=== PATIENT | male | born 1990 | race Caucasian/White ===

== ENCOUNTER 2017-01-11 13:56 | Emergency (ER) | payer MEDICAID, OTHER ==
--- NOTE | 2017-01-11 14:34 | EDM.PDOC ---
ED HPI GI/ABDOMINAL - General Chief Complaint: Gastrointestinal Problem Stated Complaint: VOMITTING Time Seen by Provider: 01/11/17 14:29 Source of Information: Reports: Patient History Limitations: Reports: No limitations - History of Present Illness INITIAL COMMENTS - FREE TEXT/NARRATIVE: HISTORY AND PHYSICAL: History of present illness: [26-year-old male [place] the prior history of marijuana enjoyment and cyclic vomiting syndrome now complaining of nausea and vomiting. Patient states he stopped smoking marijuana 2 weeks ago but he still having the same area nausea and vomiting symptoms. The case has abdominal cramping but has no pain at this time. His concern about his nausea and feels she might be getting dehydrated. No chest pain or shortness of breath. Denies abdominal pain currently. Review of systems: As per history of present illness and below otherwise all systems reviewed and negative. Past medical history: As per history of present illness and as reviewed below otherwise noncontributory. Surgical history: As per history of present illness and as reviewed below otherwise noncontributory. Social history: No reported history of drug or alcohol abuse. Family history: As per history of present illness and as reviewed below otherwise noncontributory. Physical exam: HEENT: Atraumatic, normocephalic, pupils reactive, negative for conjunctival pallor or scleral icterus, mucous membranes moist, throat clear, neck supple, nontender, trachea midline. Lungs: Clear to auscultation, breath sounds equal bilaterally, chest nontender. Heart: S1S2, regular, negative for clicks, rubs, or JVD. Abdomen: Soft, nondistended, nontender. Negative for masses or hepatosplenomegaly. Negative for costovertebral tenderness. Pelvis: Stable nontender. Genitourinary: Deferred. Rectal: Deferred. Extremities: Atraumatic, negative for cords or calf pain. Neurovascular unremarkable. Neuro: Awake, alert, oriented. Cranial nerves II through XII unremarkable. Cerebellum unremarkable. Motor and sensory unremarkable throughout. Exam nonfocal. Diagnostics: [] Therapeutics: [] Impression: [] Plan: [] Definitive disposition and diagnosis as appropriate pending reevaluation and review of above. - Related Data Allergies/ADRs: Allergies Allergy/AdvReac Type Severity Reaction Status Date / Time No Known Allergies Allergy Verified 01/11/17 14:27 Home Meds: Home Meds Ondansetron [Zofran ODT] 4 mg SL Q4H PRN #30 tab.dis 01/11/17 [Rx] Past Medical History - Past Health History Medical/Surgical History: Denies Medical/Surgical History HEENT History: Reports: Hard of hearing, Otitis media Cardiovascular History: Reports: None Respiratory History: Reports: None Gastrointestinal History: Reports: GERD, PUD Other Gastrointestinal History: "marijuanna induced cyclical vomitting" Genitourinary History: Reports: None Musculoskeletal History: Reports: Fracture Other Musculoskeletal History: hx of fx right arm Neurological History: Reports: None Psychiatric History: Reports: None Endocrine/Metabolic History: Reports: Obesity/BMI 30+ Hematologic History: Reports: None Immunologic History: Reports: None Oncologic (Cancer) History: Reports: None Dermatologic History: Reports: None - Infectious Disease History Infectious Disease History: Reports: Chicken pox - Past Surgical History Head Surgeries/Procedures: Reports: None HEENT Surgical History: Reports: Other (see below) Other HEENT Surgeries/Procedures: ear surgery Cardiovascular Surgical History: Reports: None Respiratory Surgical History: Reports: None GI Surgical History: Reports: None Male Surgical History: Reports: None Endocrine Surgical History: Reports: None Neurological Surgical History: Reports: None Musculoskeletal Surgical History: Reports: None Oncologic Surgical History: Reports: None Social & Family History - Family History Family Medical History: Noncontributory - Tobacco Use Smoking Status *Q: Never Smoker Years of Tobacco use: 4 Packs/Tins Daily: 1 Second Hand Smoke Exposure: No - Caffeine Use Caffeine Use: Reports: Coffee - Recreational Drug Use Recreational Drug Use: Yes Drug Use in Last 12 Months: Yes Recreational Drug Type: Reports: Marijuana/Hashish Recreational Drug Use Frequency: Socially ED ROS GENERAL - Review of Systems Review Of Systems: See Below ED EXAM, GI/ABD - Physical Exam Exam: See Below (See history of present illness) Course - Vital Signs Text/Narrative:: 22-year-old male signs and symptoms consistent with marijuana cyclic vomiting syndrome manifestations versus idiopathic cyclic vomiting. Patient is well- appearing with unremarkable vital signs. His abdomen is benign. Mucous membranes not visibly dry however patient is not tachycardic. Patient hydrated antiemetic given. No further workup or treatment indicated patient stable for discharge. Zofran arrived. Patient agrees with outpatient followup. Strict return precautions given. Last Recorded V/S: Last Vital Signs Temp 36.9 C 01/11/17 16:30 Pulse 99 01/11/17 16:30 Resp 18 01/11/17 16:30 BP 135/88 01/11/17 16:30 Pulse Ox 97 01/11/17 16:30 - Orders/Labs/Meds Meds: Medications Discontinued Medications Generic Name Dose Route Start Last Admin Trade Name Freq PRN Reason Stop Dose Admin Sodium Chloride 1,000 mls @ 999 mls/hr 01/11/17 14:37 01/11/17 14:59 Normal Saline IV 01/11/17 15:37 999 mls/hr STAT ONE Administration Ondansetron HCl 4 mg 01/11/17 14:37 01/11/17 14:59 Zofran Odt PO 01/11/17 14:38 4 mg ONETIME ONE Administration Departure - Departure Time of Disposition: 15:54 Disposition: Home, Self-Care 01 Condition: good Clinical Impression: Cyclic vomiting syndrome Qualifiers: Vomiting Intractability: intractable Nausea presence: without nausea Qualified Code(s): G43.A1 - Cyclical vomiting, intractable Nausea and vomiting Qualifiers: Vomiting type: unspecified Vomiting Intractability: unspecified Qualified Code( s): R11.2 - Nausea with vomiting, unspecified Prescriptions: Ondansetron [Zofran ODT] 4 mg SL Q4H PRN #30 tab.dis PRN Reason: Nausea Instructions: Nausea and Vomiting, Adult, [id number] Referrals: Rodri Garcia MD [Primary Care Provider] - Forms: ED Department Discharge Additional Instructions: Your illness is consistent with your past history of marijuana cyclic vomiting syndrome. It is good he stopped smoking marijuana 2 weeks ago however it may take some time for your vomiting syndrome to improve completely. It is also possible that there was a contributory component of marijuana smoking and you can also have another reason for her nausea and vomiting such as gastroparesis, which means decreased motility of the stomach initiated with recurrent vomiting. Use Zofran as needed for nausea and drink plenty of fluids. Follow up with your DrJhon in one to 2 days for reevaluation and further workup as needed. Return immediately for intractable or uncontrolled vomiting, severe pain, or fevers associated with abdominal pain.
[2017-01-11] MEDS: Sodium Chloride 0.9% 1,000 ML IV ONE (14:59)
[2017-01-11] MEDS: Ondansetron 4 MG Tab.DIS PO ONE (14:59)
[2017-01-11 18:27] VITALS: BP 135/88
== END 2017-01-11 16:30 | disposition home or self-care (01) ==
LOC: MW.ED 13:56
DX: G43.A1 Cyclical vomiting, in migraine, intractable (principal); K21.9 Gastro-esophageal reflux disease without esophagitis; E66.9 Obesity, unspecified; Z68.30 Body mass index [BMI] 30.0-30.9, adult; Z98.890 Other specified postprocedural states
CPT/HCPCS: 96360; 99283; A9270; J7040

== ENCOUNTER 2017-01-12 10:32 | Emergency (ER) | payer MEDICAID, OTHER ==
[2017-01-12 10:46] VITALS: BP 163/90
--- NOTE | 2017-01-12 11:01 | EDM.PDOC ---
ED HPI GI/ABDOMINAL - General Chief Complaint: Gastrointestinal Problem Stated Complaint: VOMITTING Time Seen by Provider: 01/12/17 10:39 Source of Information: Reports: Patient History Limitations: Reports: No limitations - History of Present Illness INITIAL COMMENTS - FREE TEXT/NARRATIVE: HISTORY AND PHYSICAL: History of present illness: [26-year-old male with a long history of cyclic vomiting syndrome] with suspected injury [place] marijuana component fully worked up by GI years ago which was unremarkable. Patient seen 9 times in our emergency department for the same or similar complaint of last year. Patient was seen by me yesterday with the same complaint concerned that he is dehydrated he received a liter of IV fluids. He returns today is not actively vomiting is concerned about his nausea. He has a Zofran prescription from yesterday which he filled. Denies abdominal pain. No fevers chills sweats or shaking chills. No discomfort with movement. Normal bowel and bladder habits. Review of systems: As per history of present illness and below otherwise all systems reviewed and negative. Past medical history: As per history of present illness and as reviewed below otherwise noncontributory. Surgical history: As per history of present illness and as reviewed below otherwise noncontributory. Social history: No reported history of drug or alcohol abuse. Family history: As per history of present illness and as reviewed below otherwise noncontributory. Physical exam: HEENT: Atraumatic, normocephalic, pupils reactive, negative for conjunctival pallor or scleral icterus, mucous membranes moist, throat clear, neck supple, nontender, trachea midline. His membranes moist and intact Lungs: Clear to auscultation, breath sounds equal bilaterally, chest nontender. Heart: S1S2, regular, negative for clicks, rubs, or JVD. Abdomen: Soft, nondistended, nontender. Negative for masses or hepatosplenomegaly. Negative for costovertebral tenderness. Pelvis: Stable nontender. Genitourinary: Deferred. Rectal: Deferred. Extremities: Atraumatic, negative for cords or calf pain. Neurovascular unremarkable. Neuro: Awake, alert, oriented. . Cerebellum unremarkable. Motor and sensory unremarkable throughout. Exam nonfocal. Diagnostics: [] Therapeutics: [] Impression: [] Plan: [] Definitive disposition and diagnosis as appropriate pending reevaluation and review of above. - Related Data Allergies/ADRs: Allergies Allergy/AdvReac Type Severity Reaction Status Date / Time No Known Allergies Allergy Verified 01/12/17 10:43 Home Meds: Home Meds Ondansetron [Zofran ODT] 4 mg SL Q4H PRN #30 tab.dis 01/11/17 [Rx] Past Medical History - Past Health History Medical/Surgical History: Denies Medical/Surgical History HEENT History: Reports: Hard of hearing, Otitis media Cardiovascular History: Reports: None Respiratory History: Reports: None Gastrointestinal History: Reports: GERD, PUD Other Gastrointestinal History: "marijuanna induced cyclical vomitting" Genitourinary History: Reports: None Musculoskeletal History: Reports: Fracture Other Musculoskeletal History: hx of fx right arm Neurological History: Reports: None Psychiatric History: Reports: None Endocrine/Metabolic History: Reports: Obesity/BMI 30+ Hematologic History: Reports: None Immunologic History: Reports: None Oncologic (Cancer) History: Reports: None Dermatologic History: Reports: None - Infectious Disease History Infectious Disease History: Reports: Chicken pox - Past Surgical History Head Surgeries/Procedures: Reports: None HEENT Surgical History: Reports: Other (see below) Other HEENT Surgeries/Procedures: ear surgery Cardiovascular Surgical History: Reports: None Respiratory Surgical History: Reports: None GI Surgical History: Reports: None Male Surgical History: Reports: None Endocrine Surgical History: Reports: None Neurological Surgical History: Reports: None Musculoskeletal Surgical History: Reports: None Oncologic Surgical History: Reports: None Social & Family History - Family History Family Medical History: Noncontributory - Tobacco Use Smoking Status *Q: Never Smoker Years of Tobacco use: 4 Packs/Tins Daily: 1 Second Hand Smoke Exposure: No - Caffeine Use Caffeine Use: Reports: Coffee - Recreational Drug Use Recreational Drug Use: No Drug Use in Last 12 Months: Yes Recreational Drug Type: Reports: Marijuana/Hashish Recreational Drug Use Frequency: Socially ED ROS GENERAL - Review of Systems Review Of Systems: See Below (Per history of present illness) ED EXAM, GI/ABD - Physical Exam Exam: See Below (Per history of present illness) Course - Vital Signs Text/Narrative:: Signs and symptoms consistent with very mild manifestations of patient's multiple year history of cyclic vomiting syndrome with possible contributory component from his frequent marijuana enjoyment. She was seen yesterday for the same complaint. He was given a liter of IV fluids because he was concerned he was dehydrated however he was not tachycardic or hypotensive and mucous membranes were moist. Today patient continues to be well appearing with moist mucous membranes and no tachycardia. IV fluids not indicated and patient is not actively vomiting. He has a prescription for Zofran from yesterday which she has filled. Patient's blood pressure elevated today. An extensive discussion with him about acute hypertension versus essential hypertension which requires treatment and he is aware to keep track of his blood pressure and keep a log to followup with his PCP for reevaluation and to make a decision on the indication for treatment. Patient aware of critical importance of treatment of essential hypertension if this diagnosis exists. No further workup or treatment indicated. Patient agrees with outpatient followup. Strict return precautions given Last Recorded V/S: Last Vital Signs Temp 36.4 C 01/12/17 10:43 Pulse 81 01/12/17 10:43 Resp 18 01/12/17 10:43 BP 163/90 H 01/12/17 10:43 Pulse Ox 95 01/12/17 10:43 Departure - Departure Time of Disposition: 11:01 Disposition: Admitted As Inpatient 66 Condition: good Clinical Impression: Anxiety, Hypertension, Vomiting Cyclic vomiting syndrome Qualifiers: Vomiting Intractability: intractable Nausea presence: without nausea Qualified Code(s): G43.A1 - Cyclical vomiting, intractable Instructions: Nausea and Vomiting, Adult, [id number] Referrals: PCP,None [Primary Care Provider] - Forms: ED Department Discharge Additional Instructions: The following information is given to patients seen in the emergency department who are being discharged to home. This information is to outline your options for follow-up care. We provide all patients seen in our emergency department with a follow-up referral. The need for follow-up, as well as the timing and circumstances, are variable depending upon the specifics of your emergency department visit. If you don't have a primary care physician on staff, we will provide you with a referral. We always advise you to contact your personal physician following an emergency department visit to inform them of the circumstance of the visit and for follow-up with them and/or the need for any referrals to a consulting specialist. The emergency department will also refer you to a specialist when appropriate. This referral assures that you have the opportunity for follow-up care with a specialist. All of these measure are taken in an effort to provide you with optimal care, which includes your follow-up. Under all circumstances we always encourage you to contact your private physician who remains a resource for coordinating your care. When calling for follow-up care, please make the office aware that this follow-up is from your recent emergency room visit. If for any reason you are refused follow-up, please contact the [facility] Emergency Department at and asked to speak to the emergency department charge nurse. Your intermittent vomiting from cyclic vomiting syndrome has not caused you to become dehydrated. Your well-appearing and your vital signs showed no fast heart rate to indicate dehydration. Your blood pressure was elevated today at 163/94. This represents hypertension is not clear if this needs to be treated until its demonstrated to be elevated on 3 different occasions. Keep track of your blood pressure daily and followup with your Dr. for reevaluation and to determine if treatment is indicated. Use Zofran as you were prescribed yesterday rest and drink plenty of fluids. If you feel your anxiety is a contributory component to your cyclic vomiting syndrome followup with your Dr. for medications which might help with this.
== END 2017-01-12 11:20 | disposition home or self-care (01) ==
LOC: MW.ED 10:32
DX: G43.A1 Cyclical vomiting, in migraine, intractable (principal); I10 Essential (primary) hypertension; F41.9 Anxiety disorder, unspecified; K21.9 Gastro-esophageal reflux disease without esophagitis; E11.9 Type 2 diabetes mellitus without complications; E66.9 Obesity, unspecified; Z68.30 Body mass index [BMI] 30.0-30.9, adult; Z98.890 Other specified postprocedural states
CPT/HCPCS: 99283

== ENCOUNTER 2017-02-14 11:28 | Emergency (ER) | payer BC, MEDICAID, OTHER ==
[2017-02-14] MEDS ORDERED: Sodium Chloride 0.9% 1,000 ML IV ONE (11:43)
[2017-02-14] MEDS ORDERED: Ondansetron 4 MG/2 ML SDV IVPUSH ONE (11:43)
--- NOTE | 2017-02-14 12:28 | EDM.PDOC ---
ED HPI GENERAL MEDICAL PROBLEM - General Chief Complaint: Gastrointestinal Problem Stated Complaint: THROWING UP Time Seen by Provider: 02/14/17 11:35 Source of Information: Reports: Patient History Limitations: Reports: No limitations - History of Present Illness INITIAL COMMENTS - FREE TEXT/NARRATIVE: History of present illness: [26-year-old male presenting with acute complaints of nausea and vomiting. Patient has a known history of cyclic vomiting. As well as historical heavy marijuana abuse. Patient denies heavy use at this time states he hasn't been using for several weeks but when his nausea medicine was not effective he tried smoking again the last couple days to no effect.] Review of systems: As per history of present illness and below otherwise all systems reviewed and negative. Past medical history: As per history of present illness and as reviewed below otherwise noncontributory. Surgical history: As per history of present illness and as reviewed below otherwise noncontributory. Social history: No reported history of drug or alcohol abuse. Family history: As per history of present illness and as reviewed below otherwise noncontributory. Physical exam: HEENT: Atraumatic, normocephalic, pupils reactive, negative for conjunctival pallor or scleral icterus, mucous membranes moist, throat clear, neck supple, nontender, trachea midline. Lungs: Clear to auscultation, breath sounds equal bilaterally, chest nontender. Heart: S1S2, regular, negative for clicks, rubs, or JVD. Abdomen: Soft, nondistended, nontender. Negative for masses or hepatosplenomegaly. Negative for costovertebral tenderness. Pelvis: Stable nontender. Genitourinary: Deferred. Rectal: Deferred. Extremities: Atraumatic, negative for cords or calf pain. Neurovascular unremarkable. Neuro: Awake, alert, oriented. Cranial nerves II through XII unremarkable. Cerebellum unremarkable. Motor and sensory unremarkable throughout. Exam nonfocal. Diagnostics: [CBC, CMP,] Therapeutics: [IV fluid, Zofran] Impression: [Cyclic vomiting] Plan: [Followup with internal medicine/primary care] Definitive disposition and diagnosis as appropriate pending reevaluation and review of above. Abdominal Pain Score (Numeric/FACES): 8 - Related Data Allergies Allergy/AdvReac Type Severity Reaction Status Date / Time No Known Allergies Allergy Verified 02/14/17 11:37 Home Meds: Home Meds Ondansetron [Zofran ODT] 4 mg SL Q4H PRN #30 tab.dis 01/11/17 [Rx] Past Medical History - Past Health History Medical/Surgical History: Denies Medical/Surgical History HEENT History: Reports: Hard of hearing, Otitis media Cardiovascular History: Reports: None Respiratory History: Reports: None Gastrointestinal History: Reports: GERD, PUD Other Gastrointestinal History: "marijuanna induced cyclical vomitting" Genitourinary History: Reports: None Musculoskeletal History: Reports: Fracture Other Musculoskeletal History: hx of fx right arm Neurological History: Reports: None Psychiatric History: Reports: None Endocrine/Metabolic History: Reports: Obesity/BMI 30+ Hematologic History: Reports: None Immunologic History: Reports: None Oncologic (Cancer) History: Reports: None Dermatologic History: Reports: None - Infectious Disease History Infectious Disease History: Reports: None - Past Surgical History Head Surgeries/Procedures: Reports: None HEENT Surgical History: Reports: Other (see below) Other HEENT Surgeries/Procedures: ear surgery Cardiovascular Surgical History: Reports: None Respiratory Surgical History: Reports: None GI Surgical History: Reports: None Male Surgical History: Reports: None Endocrine Surgical History: Reports: None Neurological Surgical History: Reports: None Musculoskeletal Surgical History: Reports: None Oncologic Surgical History: Reports: None Social & Family History - Family History Family Medical History: Noncontributory - Tobacco Use Smoking Status *Q: Current Some Day Smoker Years of Tobacco use: 5 Packs/Tins Daily: 0 Second Hand Smoke Exposure: Yes - Caffeine Use Caffeine Use: Reports: Soda - Recreational Drug Use Recreational Drug Use: Yes Drug Use in Last 12 Months: Yes Recreational Drug Type: Reports: Marijuana/Hashish Recreational Drug Use Frequency: Weekly ED ROS GENERAL - Review of Systems Review Of Systems: See Below (The history of present illness) ED EXAM, GENERAL - Physical Exam Exam: See Below (History of present illness) Course - Vital Signs Last Recorded V/S: Last Vital Signs Temp 36.3 C 02/14/17 11:31 Pulse 92 02/14/17 11:31 Resp 16 02/14/17 11:31 BP 174/101 H 02/14/17 11:31 Pulse Ox 97 02/14/17 11:31 - Orders/Labs/Meds Labs: Laboratory Tests 02/14/17 02/14/17 Range/Units 12:05 12:05 WBC 11.18 H (4.0-11.0) K/uL RBC 5.30 (4.50-5.90) M/uL Hgb 15.9 (13.0-17.0) g/dL Hct 45.2 (38.0-50.0) % MCV 85.3 (80.0-98.0) fL MCH 30.0 (27.0-32.0) pg MCHC 35.2 (31.0-37.0) g/dL RDW Std Deviation 40.5 (28.0-62.0) fl RDW Coeff of Mela 13 (11.0-15.0) % Plt Count 261 (150-400) K/uL MPV 9.70 (7.40-12.00) fL Neut % (Auto) 82.4 H (48.0-80.0) % Lymph % (Auto) 11.4 L (16.0-40.0) % [place] % (Auto) 5.9 (0.0-15.0) % Eos % (Auto) 0.0 (0.0-7.0) % Baso % (Auto) 0.3 (0.0-1.5) % Neut # (Auto) 9.2 H (1.4-5.7) K/uL Lymph # (Auto) 1.3 (0.6-2.4) K/uL [place] # (Auto) 0.7 (0.0-0.8) K/uL Eos # (Auto) 0.0 (0.0-0.7) K/uL Baso # (Auto) 0.0 (0.0-0.1) K/uL Nucleated RBC % 0.0 /100WBC Nucleated RBCs # 0 K/uL Sodium 138 (136-146) mmol/L Potassium 3.5 (3.5-5.1) mmol/L Chloride 101 (98-110) mmol/L Carbon Dioxide 23 (21-31) mmol/L BUN 15 (6.0-23.0) mg/dL Creatinine 0.8 (0.6-1.5) mg/dL Est Cr Clr Drug Dosing 137.75 mL/min Estimated GFR (MDRD) > 60.0 ml/min Glucose 119 H (60-110) mg/dL Calcium 9.6 (8.8-10.8) mg/dL Total Bilirubin 1.6 H (0.1-1.5) mg/dL AST 31 (5-40) IU/L ALT 50 (8-54) IU/L Alkaline Phosphatase 45 (40-150) Total Protein 7.9 (6.0-8.0) g/dL Albumin 4.6 (3.5-5.0) g/dL Globulin 3.3 (2.0-3.5) g/dL Albumin/Globulin Ratio 1.4 (1.3-2.8) Meds: Medications Discontinued Medications Generic Name Dose Route Start Last Admin Trade Name Freq PRN Reason Stop Dose Admin Sodium Chloride 1,000 mls @ 999 mls/hr 02/14/17 11:43 02/14/17 12:22 Normal Saline IV 02/14/17 12:43 999 mls/hr STAT ONE Administration Ondansetron HCl 8 mg 02/14/17 11:43 02/14/17 12:20 Zofran IVPUSH 02/14/17 11:44 8 mg ONETIME ONE Administration Departure - Departure Time of Disposition: 12:45 Disposition: Home, Self-Care 01 Condition: good Clinical Impression: Cyclic vomiting syndrome Qualifiers: Vomiting Intractability: intractable Nausea presence: without nausea Qualified Code(s): G43.A1 - Cyclical vomiting, intractable Instructions: Nausea and Vomiting, Adult, [id number] Forms: ED Department Discharge Additional Instructions: The following information is given to patients seen in the emergency department who are being discharged to home. This information is to outline your options for follow-up care. We provide all patients seen in our emergency department with a follow-up referral. The need for follow-up, as well as the timing and circumstances, are variable depending upon the specifics of your emergency department visit. If you don't have a primary care physician on staff, we will provide you with a referral. We always advise you to contact your personal physician following an emergency department visit to inform them of the circumstance of the visit and for follow-up with them and/or the need for any referrals to a consulting specialist. The emergency department will also refer you to a specialist when appropriate. This referral assures that you have the opportunity for follow-up care with a specialist. All of these measure are taken in an effort to provide you with optimal care, which includes your follow-up. Under all circumstances we always encourage you to contact your private physician who remains a resource for coordinating your care. When calling for follow-up care, please make the office aware that this follow-up is from your recent emergency room visit. If for any reason you are refused follow-up, please contact the [facility] Emergency Department at and asked to speak to the emergency department charge nurse. It is necessary for you to followup outpatient as you will need some much deeper in depth diagnostics and can be performed in an ER setting area setting. In light of this we're giving referral to followup to get to the root of this chronic cyclic vomiting that she continue to experience [facility] - Internal Medicine [address] [place] [id number]
[2017-02-14 12:33] LABS: CHLORIDE,CL 101 mmol/L (98-110); SODIUM,NA 138 mmol/L (136-146)
[2017-02-14 13:09] VITALS: BP 169/91
== END 2017-02-14 13:09 | disposition home or self-care (01) ==
LOC: MW.ED 11:28
DX: G43.A1 Cyclical vomiting, in migraine, intractable (principal); K21.9 Gastro-esophageal reflux disease without esophagitis; E66.9 Obesity, unspecified; Z68.30 Body mass index [BMI] 30.0-30.9, adult; Z98.890 Other specified postprocedural states; F17.200 Nicotine dependence, unspecified, uncomplicated
CPT/HCPCS: 36415; 80053; 85025; 96361; 96374; 99284; J2405; J7040